=== PATIENT | male | born 1940 | race Native Hawaiian/Other Pacific Islander ===

== ENCOUNTER 2018-10-14 07:40 | Outpatient (CLI) | payer OTHER, MEDICARE ==
[~2018-10-14] VITALS: Ht 30.5 cm; Wt 0.5 kg
== END 2018-10-14 23:42 | disposition home or self-care (01) ==
LOC: NM 07:40
DX: R06.02 Shortness of breath (principal); I35.1 Nonrheumatic aortic (valve) insufficiency
CPT/HCPCS: A9500; J2785

== ENCOUNTER 2020-04-18 12:16 | Outpatient (CLI) | payer OTHER, MEDICARE ==
[2020-04-18 12:40] LABS: POTASSIUM 4.1 mmol/L (3.6-5.2)
== END 2020-04-18 19:40 | disposition home or self-care (01) ==
LOC: LABW 12:16
PROVIDERS: ATTEND Physician Assistant
DX: R06.02 Shortness of breath (principal); Z79.899 Other long term (current) drug therapy
CPT/HCPCS: 36415; 80053; 83880